=== PATIENT | male | born 1955 | race Caucasian/White ===

== ENCOUNTER 2016-06-07 06:15 | Day surgery (SDC) | payer BC ==
[~2016-06-07] VITALS: Ht 188 cm; Wt 94.0 kg
[~2016-06-07 06:15] MED LIST: HYDR-3995 PO; IBUP1TAB79 PO; MELO-267 PO; METO-277 PO; OMEP40CA52 PO
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
--- OUTSIDE RECORDS SUMMARY | 2016-06-07 06:19 | XMS REPORT ---
Author Author Burak Serrano Organization [employer] Address Unknown Phone Unavailable Care Team Providers Care School Photographer Name Role Phone Burak Serrano CP Unavailable Allergies No Known Allergies Problems Problem Type Condition Code Onset Dates Condition Status Problem Cervicalgia 723.1 Active Problem Essential hypertension, benign 401.1 Active Problem Spasm of muscle 728.85 Active Problem Other and unspecified hyperlipidemia 272.4 Active Problem Esophageal reflux 530.81 Active Medications No Known Medications Results No Known Results Summary Purpose [employer] Submission
--- OUTSIDE RECORDS SUMMARY | 2016-06-07 06:20 | XMS REPORT ---
Author Burak Mcgill Organization [employer] Address Unknown Phone Unavailable Care Team Providers Care Eyelet Machine Operator Name Role Phone Burak Serrano CP Unavailable Allergies No Known Allergies Problems Problem Type Condition ICD-9 Code Onset Dates Condition Status Problem Cervicalgia 723.1 Active Problem Essential hypertension, benign 401.1 Active Problem Spasm of muscle 728.85 Active Problem Other and unspecified hyperlipidemia 272.4 Active Problem Esophageal reflux 530.81 Active Medications No Known Medications Results No Known Results Summary Purpose [employer] Submission
--- OUTSIDE RECORDS SUMMARY | 2016-06-07 06:20 | XMS REPORT ---
Author Burak Mcgill [facility] [employer] Address Unknown Phone Unavailable Care Team Providers Care Millwright Apprentice Name Role Phone Burak Serrano CP Unavailable Allergies, Adverse Reactions, Alerts Substance Reaction Event Type N.K.D.A. Info Not Available Non Drug Allergy Problems Problem Type Condition ICD-9 Code Onset Dates Condition Status Assessment Low back pain 724.2 Active Problem Cervicalgia 723.1 Active Problem Essential hypertension, benign 401.1 Active Problem Spasm of muscle 728.85 Active Assessment Hematuria 599.70 Active Assessment Left arm numbness 782.0 Active Problem Other and unspecified hyperlipidemia 272.4 Active Problem Esophageal reflux 530.81 Active Medications Medication Code System Code Instructions Start Date End Date Status Dosage cyclobenzaprine NDC 0 10 mg August 31, 2012 Active take 1 tablet by Oral route 1 time per day Ibuprofen NDC 0 200 mg August 31, 2012 Active take 3 tablets by Oral route 1 time per day as needed with food Doxazosin Mesylate NDC [address]-08 1 MG Orally Once a day at bedtime Jan 18, 2014 Active 1 tablet Omeprazole NDC 0 40 mg August 31, 2012 Active take 1 capsule (40 mg) by oral route once daily before a meal Hydrocodone-Acetaminophen NDC 0 10-500 mg August 31, 2012 Active take 1 tablet by oral route every 6 hours as needed for pain PRN zolpidem NDC 0 10 mg April 29, 2013 Active take 1 tablet (10 mg) by oral route once daily at bedtime pravastatin NDC 0 40 mg August 31, 2012 Active take 1 tablet (40 mg) by oral route [place] [address]-37 500 MG Orally Twice a day Jan 18, 2014 Feb 01, 2014 Active 1 tablet Metoprolol Succinate NDC 0 25 mg August 31, 2012 Active take 1 tablet (25 mg) by oral route once daily Procedures Procedure Coding System Code Date OFFICE VISIT EST PATIENT LEVEL 3 CPT-4 29073 Jan 18, 2014 URINALYSIS NONAUTO WO SCOPE CPT-4 77504 Jan 18, 2014 Vital Signs Date/Time: Jan 18, 2014 BMI 29.19 Index Weight 227.4 lbs Height 74 in Blood Pressure Diastolic 100 mm Hg Blood Pressure Systolic 160 mm Hg Cardiac Monitoring Heart Rate 64 /min Temperature 99 F Respiratory Rate 18 /min Results Name Result Date Reference Range Unit Urinalysis Summary Purpose [employer] Submission
--- OUTSIDE RECORDS SUMMARY | 2016-06-07 06:20 | XMS REPORT ---
Author Author GENERATED, SYSTEM Organization Unknown Address Unknown Phone Unavailable Care Team Providers Care Life Skills Instructor Name Role Phone MD LILI, GALO PP [phone] Reason For Visit Chief Complaint R73.9 Social History Functional Status Vital Signs Results Problems Encounter Diagnosis No relevant problems exist. Encounters Encounter Diagnosis No relevant problems exist. Plan of Care Procedures * Completed , on 06/17/2010 12:00 AM * Completed , on 06/17/2010 12:00 AM * Completed , on 06/17/2010 12:00 AM Immunizations No immunizations administered or ordered. Hospital Course Hospital Discharge Instructions Allergies, Adverse Reactions, Alerts * NKDA causes none. Onset na. * Latex Allergy has not been assessed. * IV Contrast Allergy has not been assessed. Medication Medication reconciliation has not been performed.
--- OUTSIDE RECORDS SUMMARY | 2016-06-07 06:20 | XMS REPORT ---
Author Author GENERATED, SYSTEM Organization Unknown Address Unknown Phone Unavailable Care Team Providers Care Systems Qa Analyst Name Role Phone MD GALILEO, GALO PP [phone] Reason For Visit Chief Complaint LUMBER RADICULOPATHY 724.4,MR 9006 - MRI LUMBAR SPINE(GENERIC) Social History Functional Status Vital Signs Results [...]
--- OUTSIDE RECORDS SUMMARY | 2016-06-07 06:20 | XMS REPORT ---
Author Burak Mcgill Organization [employer] Address Unknown Phone Unavailable Care Team Providers Care Cement Fittings Maker Name Role Phone Burak Serrano CP Unavailable Allergies, Adverse Reactions, Alerts Substance Reaction Event Type N.K.D.A. Info Not Available Non Drug Allergy Problems Problem Type Condition ICD-9 Code Onset Dates Condition Status Assessment Left arm numbness 782.0 Active Problem Cervicalgia 723.1 Active Problem Essential hypertension, benign 401.1 Active Problem Spasm of muscle 728.85 Active Assessment Lumbar radiculopathy 724.4 Active Assessment Essential hypertension, benign 401.1 Active Problem Other and unspecified hyperlipidemia 272.4 Active Problem Esophageal reflux 530.81 Active Medications Medication Code System Code Instructions Start Date End Date Status Dosage Hydrocodone-Acetaminophen NDC 0 10-500 mg August 31, 2012 take 1 tablet by oral route every 6 hours as needed for pain PRN Metoprolol Succinate NDC 0 25 mg August 31, 2012 take 1 tablet (25 mg) by oral route once daily Doxazosin Mesylate NDC [address]-95 1 MG Orally Once a day at bedtime Jan 18, 2014 1 tablet zolpidem NDC 0 10 mg April 29, 2013 take 1 tablet (10 mg) by oral route once daily at bedtime Omeprazole NDC 0 40 mg August 31, 2012 take 1 capsule (40 mg) by oral route once daily before a meal Ibuprofen NDC 0 200 mg August 31, 2012 take 3 tablets by Oral route 1 time per day as needed with food Procedures Procedure Coding System Code Date OFFICE VISIT EST PATIENT LEVEL 3 CPT-4 49484 Mar 18, 2014 Vital Signs Date/Time: Mar 18, 2014 BMI 29.17 Index Weight 227.2 lbs Height 74 in Blood Pressure Diastolic 90 mm Hg Blood Pressure Systolic 160 mm Hg Cardiac Monitoring Heart Rate 60 /min Temperature 98.1 F Respiratory Rate 18 /min Results No Known Results Summary Purpose [employer] Submission
--- OUTSIDE RECORDS SUMMARY | 2016-06-07 06:20 | XMS REPORT ---
Author Author GENERATED, SYSTEM Organization Unknown Address Unknown Phone Unavailable Care Team Providers Care Scallop Dredger Name Role Phone MD GALILEO, GALO PP [phone] Reason For Visit Chief Complaint 110 E78.5 M54.2 KRL9 Social History Functional Status Vital Signs Results [...]
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
--- OUTSIDE RECORDS SUMMARY | 2016-06-07 06:20 | XMS REPORT | Continuity of Care Document ---
Author Author [facility] Organization [facility] Address Unknown Phone Unavailable Allergies Medications Problems Procedures Results Encounters ACCT No. Visit Date/Time Discharge Status Pt. Type Provider Facility Loc./Unit Complaint [id number] 02/08/2015 13:13:00 2014 03:30:03 DIS Outpatient GALO PEARSON [id number] 01/16/2015 09:29:00 2014 03:30:03 DIS Outpatient GALO PEARSON [id number] 01/11/2015 16:21:00 2014 03:30:05 DIS Outpatient GALO PEARSON
--- OUTSIDE RECORDS SUMMARY | 2016-06-07 06:20 | XMS REPORT ---
Author Author GENERATED, SYSTEM Organization Unknown Address Unknown Phone Unavailable Care Team Providers Care Typing Bookkeeper Name Role Phone MD GALILEO, GALO PP [phone] Reason For Visit Chief Complaint 110 E78.5 [...]
--- OUTSIDE RECORDS SUMMARY | 2016-06-07 06:20 | XMS REPORT ---
Author Burak Mcgill Organization [employer] Address Unknown Phone Unavailable Care Team Providers Care Accounting Software Specialist Name Role Phone Burak Serrano CP Unavailable [...]
[2016-06-07 06:23] VITALS: BP 190/99; PULSE 47; RESP 14; TEMP 97.6; O2SAT 96; Ht 188 cm; Wt 94.0 kg
[2016-06-07] MEDS ORDERED: LR 1,000 ML IV SCH (07:00)
[2016-06-07] MEDS ORDERED: LIDOCAINE 1% (10mg/ml) 2ml SDV INJ ONE (07:00)
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
[2016-06-07] MEDS ORDERED: LIDOCAINE 2% (20mg/ml) 5ml PF SDV ONE (07:11)
[2016-06-07] MEDS ORDERED: PROPOFOL 500mg 50 ML IV ONE (07:11)
[2016-06-07 07:57] VITALS: BP 143/66; PULSE 47; RESP 12; TEMP 97; O2SAT 98
--- NOTE | 2016-06-07 08:00 | GSPOSTPROC ---
Immediate Operative Note DATE: 06/07/16 TIME: 07:59 Postop Diagnosis: Desire for screening Surgical Procedure: C-scope Surgeon: Charles ASA: 2 MAXINE FALK MD Jun 07, 2016 08:00
[2016-06-07 08:12] VITALS: BP 129/77; PULSE 46; RESP 16; O2SAT 99
[2016-06-07 08:27] VITALS: BP 178/82; PULSE 46; RESP 18; O2SAT 98
[2016-06-07 08:42] VITALS: BP 201/99; PULSE 45; RESP 16; TEMP 97.1; O2SAT 99
--- NOTE | 2016-06-07 08:58 | ANESPO ---
Post-Op Note Date 06/07/16 Time: 08:58 Status Pt Participated in Evaluation: Pt participated in person Vital Signs Date Time Temp Pulse Resp B/P Pulse Ox O2 Delivery O2 Flow Rate FiO2 06/07/16 08:42 97.1 45 16 201/99 99 Room Air Respiratory Function: Airway patent Cardiovascular Function: Regular pulse Mental Status: Alert/oriented Pain Level Intensity: 0 Hydration: IV infusing Complications during Recovery None apparent Follow-Up Instructions Instructions Per Surgeon PA COTTRELL CRNA Jun 07, 2016 08:57
--- NOTE | 2016-06-07 15:54 | OPNOTEF ---
DATE OF OPERATION 06/07/2016 PREOPERATIVE DIAGNOSES 1. Personal history of adenomatous colon polyps. 2. Desire for screening for colon and rectal carcinoma. POSTOPERATIVE DIAGNOSES 1. Personal history of adenomatous colon polyps. 2. Desire for screening for colon and rectal carcinoma. OPERATION Total colonoscopy SURGEON Vito Soto MD ANESTHESIA TIVA ASA CLASS 2 FINDINGS There were no colon or rectal tumors. There no colon or rectal polyps. There were no colonic angiodysplasia lesions. There was no melanosis coli. There was no inflammatory bowel disease. There was no colonic diverticulosis. Findings were normal throughout the colon and rectum.. DESCRIPTION OF OPERATION The patient was brought to the endoscopy room. The patient was placed on a cart in the endoscopy room. The patient was placed in left lateral recumbent position on the cart in the endoscopy room. The patient was premedicated with intravenous sedation medication administered by the nurse senior salesforce developer. The Olympus colonoscope was used. The colonoscope was introduced into the rectum. The colonoscope was advanced up through the rectum and colon all the way up to the cecum. The appendiceal orifice was visualized. The ileocecal valve was visualized. The colonoscope was then withdrawn out through the colon and rectum and removed from the patient. Digital rectal examination was performed. Findings throughout the procedure were as described above. The patient did continue to receive intravenous sedation medication administered by the nurse senior salesforce developer throughout the operation. The patient did tolerate the operation well. RECOMMENDATION Followup colonoscopy again in 10 years. MTDD
== END 2016-06-07 08:55 | disposition home or self-care (01) ==
LOC: SCU 06:15
PROVIDERS: ATTEND Surgery
DX: Z12.11 Encounter for screening for malignant neoplasm of colon (principal); Z86.010 Personal history of colon polyps; F17.210 Nicotine dependence, cigarettes, uncomplicated; Z79.899 Other long term (current) drug therapy
CPT/HCPCS: 45378; J2704; J7120